=== PATIENT | female | born 1945 | race Two or more races ===

== ENCOUNTER 2021-11-09 09:29 | Day surgery (SDC) | payer OTHER ==
[2021-11-03 13:37] VITALS: BMI 25.2
[~2021-11-09 09:29] MED LIST: CEFAZOLIN SODIUM 2 GM in DEXTROSE 5%-WATER - 50 ML IVPB ONE; CELECOXIB 200 MG CAPSULE PO ONE; TRANEXAMIC ACID 1000 MG/10 ML VIAL IVPUSH ONE; VANCOMYCIN 1,000 MG VIAL (RESTRICTED TO ID ONLY) IVPB ONE; ceFAZolin SODIUM 1 GM VIAL IVPB ONE
[2021-11-09] MEDS ORDERED: CELECOXIB 200 MG CAPSULE ONE (10:37)
[2021-11-09] MEDS ORDERED: VANCOMYCIN 1,000 MG VIAL (RESTRICTED TO ID ONLY) ONE ×2 (12:10→15:35)
[2021-11-09] MEDS ORDERED: ceFAZolin SODIUM 1 GM VIAL ONE ×2 (12:10→13:55)
[2021-11-09] MEDS ORDERED: MIDAZOLAM HCL 2 MG/2 ML SINGLE DOSE VIAL ONE (12:54)
[2021-11-09] MEDS ORDERED: BUPIVACAINE LIPOSOME/PF (EXPAREL) 266 MG/20 ML VIAL ONE (12:54)
[2021-11-09] MEDS ORDERED: SODIUM CHLORIDE 0.9% P/F 10 ML VIAL IJ ONE (12:54)
[2021-11-09] MEDS ORDERED: BUPIVACAINE HCL/PF 0.5% (5MG/ML) 10 ML VIAL ONE (12:54)
[2021-11-09] MEDS ORDERED: PROPOFOL 40 ML ONE (13:31)
[2021-11-09] MEDS ORDERED: ONDANSETRON 4 MG/2 ML VIAL ONE (13:55)
[2021-11-09] MEDS ORDERED: TRANEXAMIC ACID 1000 MG/10 ML VIAL ONE (13:55)
[2021-11-09] MEDS ORDERED: ceFAZolin SODIUM 1 GM VIAL IVPB ONE ×2 (13:55→15:00)
[2021-11-09] MEDS ORDERED: oxyCODONE HCL 5 MG TABLET PO PRN (15:04)
[2021-11-09] MEDS ORDERED: ONDANSETRON 4 MG/2 ML VIAL IVPUSH PRN (15:04)
[2021-11-09] MEDS ORDERED: LACTATED RINGERS SOLUTION 1,000 ML IV SCH (16:15)
[2021-11-09] MEDS: ACETAMINOPHEN 500 MG TABLET (FP) PO SCH ×2 (16:36→21:11)
[2021-11-09] MEDS: KETOROLAC TROMETHAMINE 30 MG/1 ML VIAL IVPUSH SCH ×2 (16:36→21:12)
[2021-11-09] MEDS: oxyCODONE HCL 5 MG TABLET PO PRN (20:13)
[2021-11-09] MEDS: SENNOSIDES/DOCUSATE COMBO (SENNA PLUS) TABLET (UD) PO SCH (21:11)
[2021-11-09] MEDS: GABAPENTIN 300 MG CAPSULE PO SCH (21:11)
[2021-11-10] MEDS: GABAPENTIN 300 MG CAPSULE PO SCH ×3 (06:35→22:48)
[2021-11-10] MEDS: ACETAMINOPHEN 500 MG TABLET (FP) PO SCH ×4 (06:35→22:48)
[2021-11-10 08:13] LABS: HEMATOCRIT 32.6 % (32.4-45.2); HEMOGLOBIN 11.1 G/dL (10.7-15.3); MEAN CELL VOLUME 85.1 fl (80-96); MEAN PLT VOLUME 8.1 fl (7.5-11.1); PLATELET COUNT 144.2 10^3/uL (134-434); RBC 3.83 10^6/uL (3.60-5.2); RDW 15.4 % (11.6-15.6); WHITE BLOOD COUNT 5.1 10^3/uL (4.0-10.8)
[2021-11-10] MEDS ORDERED: traMADol HCL 50 MG TABLET PO PRN (08:36)
[2021-11-10] MEDS: LEVOTHYROXINE NA 150 MCG TABLET PO SCH (09:33)
[2021-11-10] MEDS: SENNOSIDES/DOCUSATE COMBO (SENNA PLUS) TABLET (UD) PO SCH ×2 (09:34→22:48)
[2021-11-10] MEDS: CEFAZOLIN SODIUM 2 GM in DEXTROSE 5%-WATER - 50 ML IVPB SCH ×3 (09:34→15:13)
[2021-11-10] MEDS: PANTOPRAZOLE 40 MG TABLET PO SCH (09:34)
[2021-11-10] MEDS: MULTIVITAMINS (DAILY MVI) TABLET (FP) PO SCH (09:35)
[2021-11-10] MEDS: FAMOTIDINE 20 MG TABLET PO SCH (09:36)
[2021-11-10] MEDS: ASPIRIN 325 MG TABLET PO SCH (09:38)
[2021-11-10] MEDS: FERROUS SO4 325 MG TABLET (FP) PO SCH (09:45)
[2021-11-10] MEDS ORDERED: DILTIAZEM HCL 240 MG PO SCH (10:00)
[2021-11-10] MEDS ORDERED: ONDANSETRON 4 MG/2 ML VIAL IVPUSH ONE (12:15)
[2021-11-10 14:16] VITALS: RESP 18
[2021-11-11] MEDS: GABAPENTIN 300 MG CAPSULE PO SCH (06:02)
[2021-11-11] MEDS: ACETAMINOPHEN 500 MG TABLET (FP) PO SCH ×2 (06:03→08:18)
[2021-11-11] MEDS: LEVOTHYROXINE NA 150 MCG TABLET PO SCH (06:05)
[2021-11-11 06:55] VITALS: PULSE 76
[2021-11-11] MEDS: oxyCODONE HCL 5 MG TABLET PO PRN (08:16)
[2021-11-11] MEDS: ASPIRIN 325 MG TABLET PO SCH (08:18)
[2021-11-11 08:26] LABS: HEMATOCRIT 32.5 % (32.4-45.2); MCH 29.2 pg (25.7-33.7); MCHC 33.9 g/dl (32.0-36.0); MEAN CELL VOLUME 85.9 fl (80-96); MEAN PLT VOLUME 8.2 fl (7.5-11.1); PLATELET COUNT 127.3 10^3/uL (134-434); RBC 3.78 10^6/uL (3.60-5.2); RDW 15.3 % (11.6-15.6); WHITE BLOOD COUNT 6.1 10^3/uL (4.0-10.8)
[2021-11-11] MEDS: FAMOTIDINE 20 MG TABLET PO SCH (09:35)
[2021-11-11] MEDS: PANTOPRAZOLE 40 MG TABLET PO SCH (09:35)
[2021-11-11] MEDS: MULTIVITAMINS (DAILY MVI) TABLET (FP) PO SCH (09:35)
[2021-11-11] MEDS: FERROUS SO4 325 MG TABLET (FP) PO SCH (09:35)
[2021-11-11] MEDS: SENNOSIDES/DOCUSATE COMBO (SENNA PLUS) TABLET (UD) PO SCH (09:35)
[2021-11-11 09:53] VITALS: BP 110/51; TEMP 99
== END 2021-11-11 13:10 | disposition home health service (06) ==
LOC: FASUSAT 09:29 → FM/S 17:50 → FASUSAT 11-11 13:10
PROVIDERS: ATTEND Orthopaedic Surgery
PROC: 8E0YXBZ Computer Assisted Procedure of Lower Extremity (ICD-10-PCS; 2021-11-09)
PROC: 8E0Y0CZ Robotic Assisted Procedure of Lower Extremity, Open Approach (ICD-10-PCS; 2021-11-09)
PROC: 0SRD0J9 Replacement of Left Knee Joint with Synthetic Substitute, Cemented, Open Approach (ICD-10-PCS; principal; 2021-11-09 14:04)
DX: M17.12 Unilateral primary osteoarthritis, left knee (principal); I10 Essential (primary) hypertension
CPT/HCPCS: 20985; 27447; C1776; S2900; 36415; 73560-TC-LT-FY; 85027; 88305-TC; 88311-TC; 94760; 97010-GP; 97116-GP; 97162-GP; C1713